=== PATIENT | male | born 1975 | race Caucasian/White ===

== ENCOUNTER 2022-10-27 06:57 | Emergency (ER) | payer BC, SELFPAY ==
[2022-10-27 06:57] VITALS: BP 109/90; PULSE 74; RESP 18; TEMP 36.4; O2SAT 100; BMI 21.2
--- NOTE | 2022-10-27 07:19 | CT_ITS ---
PROCEDURE INFORMATION: Exam: CT Abdomen And Pelvis With Contrast Exam date and time: 10/27/2022 7:39 AM Age: 47 years old Clinical indication: Abdominal pain; Acute; Additional info: Lower abd pain TECHNIQUE: Imaging protocol: Computed tomography of the abdomen and pelvis with contrast. Radiation optimization: All CT scans at this facility use at least one of these dose optimization techniques: automated exposure control; mA and/or kV adjustment per patient size (includes targeted exams where dose is matched to clinical indication); or iterative reconstruction. Contrast material: ISOVUE; Contrast volume: 100 ml; Contrast route: IV; REPORTING DATA: Count of CT and Cardiac NM exams in prior 12 months: This patient has received 0 known CTs and 0 known cardiac nuclear medicine studies in the 12 months prior to the current study. COMPARISON: CR XR LUMBAR SPINE 2-3V 07/12/2019 4:18 PM FINDINGS: Liver: Normal. No mass. Gallbladder and bile ducts: Normal. No calcified stones. No ductal dilation. Pancreas: Normal. No ductal dilation. Spleen: Normal. No splenomegaly. Adrenal glands: Normal. No mass. Kidneys and ureters: Normal. No hydronephrosis. Stomach and bowel: Bowel wall thickening in the rectosigmoid may represent colitis in the appropriate clinical setting. Appendix: Normal appendix Intraperitoneal space: Minimal free fluid in the pelvis Vasculature: Unremarkable. No abdominal aortic aneurysm. Lymph nodes: Unremarkable. No enlarged lymph nodes. Urinary bladder: The bladder wall measures 7 mm. Mild surrounding inflammatory changes This is nonspecific and may represent inflammation or infection. Neoplastic process and neurogenic bladder are included in the differential. Reproductive: Unremarkable as visualized. Bones/joints: Unremarkable. No acute fracture. Soft tissues: Left inguinal hernia contains fat IMPRESSION: 1. Bowel wall thickening in the rectosigmoid may represent colitis in the appropriate clinical setting. 2. The bladder wall measures 7 mm. Mild surrounding inflammatory changes This is nonspecific and may represent inflammation or infection. Neoplastic process and neurogenic bladder are included in the differential.
--- NOTE | 2022-10-27 07:20 | PC.NURSE ---
DR SANCHEZ AT BEDSIDE
[2022-10-27 07:27] LABS: Basophils % 0.5 % (0.1-2.0); Eosinophils # 0.1 K/mm3 (0.0-0.4); Eosinophils % 1.7 % (0.1-12.0); Hematocrit 49.9 % (42.0-52.0); Hemoglobin 16.6 g/dL (14.1-18.0); Lymphocytes % 39.8 % (10-50); Mean Corpuscular HGB Conc 33.3 g/dL (31.8-35.4); Mean Corpuscular Hemoglobin 30.3 pg (27.0-31.2); Mean Corpuscular Volume 91.1 fl (80-94); Mean Platelet Volume 7.5 fl (7.4-10.4); Monocytes # 0.4 K/mm3 (0.1-1.0); Monocytes % 8.3 % (1.7-9.3); Neutrophils # 2.5 K/mm3 (1.8-7.8); Neutrophils % 49.8 % (37.0-80.0); Platelet Count 239 K/mm3 (142-424); Red Blood Count 5.48 M/mm3 (4.60-6.20); Red Cell Distribution Width 13.3 % (11.5-17.5)
[2022-10-27 07:31] LABS: Alanine Aminotransferase 36 U/L (12-78); Albumin Level 4.8 g/dl (3.5-5.0); Albumin/Globulin Ratio 1.6 (1.1-1.8); Alkaline Phosphatase 31 U/L (38-126); Anion Gap 15.1 mEq/L (5-15); Aspartate Amino Transferase 37 U/L (17-59); Bilirubin,Total 1.6 mg/dl (0.2-1.3); Blood Urea Nitrogen 21 mg/dl (9-20); Calcium 9.6 mg/dl (8.4-10.2); Carbon Dioxide 33 mmol/L (22.0-30.0); Chloride 97 mmol/L (98-107); Creatinine Clearance Estimated 81 mL/min (50-200); Estimated Glomerular Filt Rate 80 ml/min (>60); GFR (African American) 97 ML/MIN (>60); Glucose 103 mg/dl (74-100); Lipase 100 U/L (23-300); Potassium 5.1 mmoL/L (3.5-5.1); Sodium 140 mmol/L (136-145); Total Protein,Serum 7.8 g/dl (6.3-8.2)
--- NOTE | 2022-10-27 07:36 | PC.NURSE ---
pt to CT
--- NOTE | 2022-10-27 07:40 | PC.NURSE ---
ROUNDED ON PT, REPORTS SOME RELIEF FROM TORADOL. NO FURTHER NEEDS AT THIS TIME. AT BEDSIDE.
--- NOTE | 2022-10-27 07:42 | PC.NURSE ---
pt return from ct
--- NOTE | 2022-10-27 07:44 | PC.NURSE ---
pt reports pain has improved, states no needs at this time, warm blanket offered-pt declined. at BS, Call blanco in reach
[2022-10-27 07:46] VITALS: BP 127/72; PULSE 53; RESP 18; O2SAT 99
[2022-10-27 08:00] VITALS: BP 112/72; PULSE 54; RESP 18; O2SAT 100
--- NOTE | 2022-10-27 08:09 | PC.NURSE ---
DR ENGLAND AT BEDSIDE
--- NOTE | 2022-10-27 08:23 | PC.NURSE ---
PT ASSISTED TO BR, UA COLLECTED AT THIS TIME. PT RETURNED TO BED, NO NEEDS VOICED. AT BEDSIDE
[2022-10-27 08:27] LABS: Appearance,Urine CLEAR (Clear); Bilirubin,Urine Negative (Negative); Blood, Urine Negative (Negative); Color,Urine YELLOW (Yellow); Glucose,Urine (UA) Negative (Negative); Ketones,Urine Negative (Negative); Leukocyte Esterase,Urine Negative (Negative); Microscopic, Urine URINE MICROSCOPIC (MICROSCOPIC); Nitrate,Urine Negative (Negative); PH,Urine 6.5 (5.0-8.5); Protein,Urine Negative (Negative); Urobilinogen,Urine 0.2 EU/dl (0.2)
[2022-10-27 08:37] LABS: Bacteria,Urine Trace /lpf; Squamous Epithelial Cell,Urine Occasional #/hpf (0-5)
--- NOTE | 2022-10-27 08:40 | PC.NURSE ---
PT REQUESTS PAIN MEDICATION, DR ENGLAND NOTIFIED
--- NOTE | 2022-10-27 08:42 | PC.NURSE ---
contacted rad to check on status of ct results, rad staff reports pt scan is assigned but no results back yet.
--- NOTE | 2022-10-27 09:05 | PC.NURSE ---
pt sitting on side of bed no needs at this time
[2022-10-27 09:06] VITALS: BP 116/81; PULSE 52; RESP 18; O2SAT 98
--- NOTE | 2022-10-27 09:31 | HMH.EDGENADL ---
Discharge Plan Disposition Patient Disposition: Home, Self-Care Condition: Good Prescriptions Prescriptions: New ciprofloxacin HCl [Cipro] 500 mg tablet 500 mg PO BID Qty: 20 0RF hydrocodone-acetaminophen 5-325 mg tablet 1 tab PO TID PRN (Reason: pain) Qty: 9 0RF Referrals Follow up/Referrals: Provider,Referral, [Primary Care Provider] - See instructions Activity Restrictions/Add. Instructions Additional Instructions/Restrictions: Medications as directed. Obtain PCP and discuss follow-up colonoscopy. Clinical Impressions Clinical Impression: Colitis cystica profunda, Bacteriuria Instructions Patient Instructions: DI for Acute Abdominal Pain Discharge ED Provider: Fercho (ED)[facility] Adult HPI General Chief complaint: Abdominal Pain Stated complaint: Left side abd pain Time Seen by Provider: 10/27/22 08:06 Mode of Arrival: Ambulatory Source of Information: Patient Limitations: No Limitations Description of Symptoms (Recalled from ER Triage Doc. by RN): PT WOKE WITH LEFT LOWER QUAD PAIN ABOUT 0300 THIS AM, WITH RIGHT SIDED BACK PAIN. PT DENIES N/V, DENIES FEVER OR CHILLS. NO CHANGE IN BOWEL HABITS. History of Present Illness HPI narrative: 47yo M presents to the ER with left lower quadrant abdominal pain. Pain woke him from sleep this morning. Denies previous episode. No fever. No abdominal surgery. No nausea or vomiting. Normal bowel habits. Reports no change in his diet. Related Data Previous Rx's Medication Instructions Recorded ciprofloxacin HCl 500 mg tablet 500 mg PO BID #20 tabs 10/27/22 (Cipro) hydrocodone 5 mg-acetaminophen 325 1 tab PO TID PRN pain #9 tabs 10/27/22 mg tablet Allergies Allergy/AdvReac Type Severity Reaction Status Date / Time No Known Allergies Allergy Verified 07/28/17 10:21 [facility] Disclaimer: The information contained in this section may have been updated after the patient was seen, as this information can be updated by other users. Medical History No significant past medical history Family History Other No significant family history Social History Smoking Status: Never smoker alcohol intake: never current occupational status: other Travel in the last 8 weeks: None ROS Obtained: Yes Systems reviewed as appropriate & no additional complaints except as documented Physical Exam General General appearance: alert and in no apparent distress Head Head exam: atraumatic Eye Eye exam: Present normal appearance Neck Neck exam: Present normal inspection Chest Chest inspection: Present symmetric chest wall rise Respiratory Respiratory exam: Present normal lung sounds bilaterally; Absent respiratory distress Cardiovascular Cardiovascular exam: Present regular rate, normal rhythm and normal heart sounds Abdominal Exam Abdominal exam: Present soft, tenderness (Right upper quadrant tenderness, left lower quadrant tenderness) and normal bowel sounds; Absent distention or rigidity Extremities Exam Extremities exam: Present normal inspection; Absent tenderness Neurological Exam Neurological exam: Present alert, oriented X3 and CN II-XII intact Psychiatric Psychiatric exam: Present normal affect Skin Skin exam: Present warm and dry Medical Decision Making Medical Records Medical records reviewed: Yes I reviewed the patient's medical records. Martir Inquiry Pt receiving controlled substance: Yes Martir was queried for this patient: Yes Risks and benefits of using a controlled substance: were discussed with pt by me Vital Signs: 10/27/22 06:57 10/27/22 07:46 10/27/22 08:00 Temperature 97.6 F Temperature Source Oral Pulse Rate 53 L 54 L Pulse Rate [Radial] 74 Respiratory Rate 18 18 18 Blood Pressure 127/72 112/72 Blood Pressure [Left Arm] 109/90 L B
--- NOTE | 2022-10-27 09:39 | PC.NURSE ---
PT STATES NO RELIEF FROM MORPHINE, DR ENGLAND NOTIFIED. AT BEDSIDE TO SPEAK WITH PT AND
[2022-10-27 09:58] VITALS: BP 118/79; PULSE 60; RESP 17; TEMP 36.6; O2SAT 98
== END 2022-10-27 10:00 | disposition home or self-care (01) ==
PROVIDERS: Emergency Provider Emergency Medicine
DX: K52.89 Other specified noninfective gastroenteritis and colitis (principal); R82.71 Bacteriuria; R10.32 Left lower quadrant pain
CPT/HCPCS: 74177; 80053; 81001; 83690; 85025; 96361; 96374; 96375; 99285; J2405; Q9967

== ENCOUNTER → 2023-04-01 13:49 | Outpatient (CLI) | payer BC, SELFPAY ==
--- NOTE | 2023-04-01 13:53 | XR_ITS ---
FINAL REPORT CLINICAL HISTORY: cervical pain, pain radiates down both arms FINDINGS: SPINE CERVICAL COMPLETE/FLEXION & EXT AP, lateral, oblique with flexion and extension views were obtained. There is no acute fracture. Alignment is within normal limits. There are mild degenerative changes. There are osteophytes in the lower cervical spine. There is no significant neural foraminal narrowing. There is no abnormal movement with flexion or extension. IMPRESSION: Mild degenerative change. Reviewed, Interpreted and Dictated by Kd Sheikh III, MD Transcribed by Doron Whaley Authenticated and [facility]
== END ==
LOC: RAD 13:50
PROVIDERS: PCP Nurse Practitioner Family; Visit Provider Nurse Practitioner Family
DX: M54.12 Radiculopathy, cervical region (principal); M54.2 Cervicalgia; M54.9 Dorsalgia, unspecified
CPT/HCPCS: 72052

== ENCOUNTER → 2023-04-16 16:06 | Outpatient (CLI) | payer BC, SELFPAY ==
[2023-04-16 16:52] LABS: Prothrombin Time 10.8 seconds (10.1-12.5)
[2023-04-16 16:53] LABS: Basophils % 0.3 % (0.1-2.0); Eosinophils # 0.1 K/mm3 (0.0-0.4); Eosinophils % 1.1 % (0.1-12.0); Hematocrit 47.3 % (42.0-52.0); Hemoglobin 16.7 g/dL (14.1-18.0); Lymphocytes # 1.8 K/mm3 (0.7-4.5); Lymphocytes % 30.7 % (10-50); Mean Corpuscular HGB Conc 35.3 g/dL (31.8-35.4); Mean Corpuscular Volume 90.6 fl (80-94); Mean Platelet Volume 7.5 fl (7.4-10.4); Monocytes # 0.3 K/mm3 (0.1-1.0); Neutrophils # 3.5 K/mm3 (1.8-7.8); Neutrophils % 61.9 % (37.0-80.0); Platelet Count 217 K/mm3 (142-424); Red Blood Count 5.22 M/mm3 (4.60-6.20); Red Cell Distribution Width 13.2 % (11.5-17.5); White Blood Count 5.7 K/mm3 (4.8-10.8)
[2023-04-16 17:09] LABS: Alanine Aminotransferase 97 U/L (12-78); Albumin Level 4.8 g/dl (3.5-5.0); Alkaline Phosphatase 39 U/L (38-126); Anion Gap 12.8 mEq/L (5-15); Aspartate Amino Transferase 65 U/L (17-59); Bilirubin,Indirect 1.1 mg/dL (0.0-0.9); Bilirubin,Total 1.1 mg/dl (0.2-1.3); Bilirubin,Unconjugated 1.1 mg/dL (0.0-1.1); Blood Urea Nitrogen 20 mg/dl (9-20); Calcium 9.8 mg/dl (8.4-10.2); Carbon Dioxide 31 mmol/L (22.0-30.0); Chloride 98 mmol/L (98-107); Chol/HDL Ratio 3.1 (1-3.5); Cholesterol 295 mg/dl (140-200); Estimated Glomerular Filt Rate 90 ml/min (>60); GFR (African American) 109 ML/MIN (>60); Glucose 95 mg/dl (74-100); HDL Cholesterol 95 mg/dl (40-60); Potassium 3.8 mmoL/L (3.5-5.1); Sodium 138 mmol/L (136-145); Total Protein,Serum 7.8 g/dl (6.3-8.2); Triglycerides 108 mg/dl (30-150); VLDL Cholesterol 22 mg/dL (0-40)
[2023-04-16 17:20] LABS: Direct LDL Cholesterol 156.62 mg/dL (100-129)
[2023-04-16 17:26] LABS: Free Thyroxine Index 2.1 ug/dL (5.93-13.13); T4 (Thyroxine) 6.8 ug/dl (5.53-11.0); Triiodothryronine (T3) Uptake 31 % (23.5-40.5)
[2023-04-16 17:39] LABS: Thyroid Stimulating Hormone 2.36 uIU/mL (0.465-4.68)
[2023-04-16 18:01] LABS: Hemoglobin A1C 5.1 % (4.0-6.0)
== END ==
PROVIDERS: PCP Nurse Practitioner Family; Visit Provider Internal Medicine
DX: R00.0 Tachycardia, unspecified (principal); R94.31 Abnormal electrocardiogram [ECG] [EKG]
CPT/HCPCS: 36415; 80048; 80061; 80076; 83036; 84436; 84443; 84479; 85025; 85610

== ENCOUNTER → 2023-04-29 10:09 | Outpatient (CLI) | payer BC, SELFPAY ==
--- NOTE | 2023-04-29 10:10 | CA_ITS ---
APPROVED REPORT EXAM: Comprehensive 2D, Doppler, and color-flow Echocardiogram Bean Picker: Janis Lancaster RVT Ht: 5 ft 8 in Wt: 146lbs BSA: 1.79 BP: 136/93 mmHg Indications: ABN EKG,HTN 2D Dimensions LVOT 2.02 cm (M/F) 1.5-2.5 LA Volume 26.20 mL LA Volume Index 14.64 mL/m2 (M/F) 16-34 M-Mode Dimensions RVDd 2.48 cm (0.9-2.6) LA Diam 2.66 cm (1.9-4.0) LVDd 5.03 cm (3.5-5.7) Ao Diam 3.46 cm (2.0-3.7) LVDs 3.22 cm (3.5-5.7) IVSd 0.97 cm (0.6-1.1) PWd 0.54 cm (0.6-1.1) EF (Teich) 65.30% FS 36.00% EDV (Teich) 119.90 mL TAPSE 2.99 (<1.7) ESV (Teich) 41.60 mL LV Diastology E Decel Time 150.00 (160-240 msec) E/A Ratio 0.9 MED E' 4.40 (< 7 cm/sec) E'/MED E' Ratio 11.95 (>14) LAT E' 7.60 (<10 cm/sec) E/LAT E' Ratio 6.92 (>14) Aortic Valve LVOT Max 89.00 (70-110 cm/s) LVOT VTI 16.16 cm AoV Peak Godfrey. 107.00 (50-130 cm/s) AO Peak GR. 4.60 mmHg AO Mean GR. 2.30 (<5 mmHg) AO VTI 21.25 (18-25 cm) JELLY (VTI) 2.44 (2.5-4.5 cm2) Mitral Valve MV E Max Godfrey. 53.00 (40-130 cm/s) MV A Velocity 62.00 (40-130 cm/s) E/A Ratio 0.85 MV Decel. Time 150.00 (160-240 ms) MV PHT 44.00 ms Pulmonary Valve PV Peak Velocity 57.00 (50-150 cm/s) Tricuspid Valve TR P. Velocity 264.00 cm/s RAP Estimate 10.00 mmHg RVSP 37.80 mmHg Left Ventricle The left ventricle is normal size. The left ventricular systolic function is normal. The left ventricular ejection fraction is within the normal range. There is normal left ventricular wall thickness. There is normal LV segmental wall motion. The left ventricular diastolic function is normal. LVEF is 60%. Right Ventricle The right ventricle is normal size. The right ventricular systolic function is normal. Atria The left atrium size is normal. The right atrium size is normal. There is no Doppler evidence of interatrial shunt. Aortic Valve The aortic valve opens well. The aortic valve is trileaflet. There is no aortic valvular stenosis. No aortic regurgitation is present. Mitral Valve The mitral valve is normal in structure. No evidence of mitral valve stenosis. Mild mitral regurgitation. Tricuspid Valve The tricuspid valve leaflets are thin and pliable. Trace tricuspid regurgitation. RVSP is normal. Pulmonic Valve The pulmonary valve is normal in structure. Mild pulmonic regurgitation. Great Vessels The aortic root is normal in size. The ascending aorta is normal in size. IVC is normal in size and collapses >50% with inspiration. Pericardium There is no pericardial effusion. Other Information Study Quality: Adequate Conclusion Normal biventricular systolic function. Mild MR. Electronically signed by : Melvina Gregg MD 04/30/2023 10:21:30
== END ==
LOC: RT 10:10
PROVIDERS: PCP Nurse Practitioner Family; Visit Provider Internal Medicine
DX: R00.0 Tachycardia, unspecified (principal); R94.31 Abnormal electrocardiogram [ECG] [EKG]
CPT/HCPCS: 93306

== ENCOUNTER → 2023-05-16 07:21 | Outpatient (CLI) | payer SELFPAY ==
--- NOTE | 2023-05-16 07:23 | CT_ITS ---
APPROVED REPORT Digital Media Associate: CLINICAL INDICATION Risk stratification, preventative care TECHNIQUE Image Acquisition: A 128 slice MDCT scanner ([place] View) was used for data acquisition. A noncontrast coronary calcium scan was performed. A CT attenuation threshold of 130 Hounsfield units (HU) was used for the detection of calcium in contiguous voxels of 1 sq mm in area to be counted as individual lesions. A tube voltage of 120 KVp was used. The patient received no medications prior to the coronary calcium CT. Image Reconstruction Transaxial images were reconstructed at 0.67 mm slide thickness. Data was reviewed interactively on an advanced workstation capable of 2 and 3-dimensional displays in all conventional reconstruction formats, including multiplanar reformations, maximum intensity projections, curved multiplanar reformations, and volume rendered reconstructions. When applicable, selected routine images describing the relevant coronary anatomy and pathology were saved and sent to PACS. Complications None Technical Quality Overall image quality was good. Total DLP (Dose-Length Product) is 161.9 mGy-cm. The reported value represents the total of one or more individual components during the CT acquisition of this date and at this time, and as such, the same value may appear in more than one CT report depending on the interpreting/reporting physicians. COMPARISON None FINDINGS CT Coronary Calcium Scoring LMA (Left Main Artery) = 0 LAD (Left Anterior Descending) = 0 LCX (Left Coronary Circumflex) = 0 RCA (Right Coronary Artery) = 0 Total Calcium Score = 0 using the AJ-130 method. There is no identifiable calcification in the aortic valve, mitral annulus or mitral valve, pericardium, or myocardium. IMPRESSION -Coronary artery calcification is absent. -Total Calcium Score (Agatston Score) = 0 using the AJ-130 method. The interpretation of the calcium heart score is based on the following continuum*: 0 = no calcified plaque detected (risk of coronary artery disease is very low ??? less than 5%) 1-10 = calcium detected in extremely minimal levels (risk of coronary diseases is still low ??? less than 10%) 11-100 = mild levels of plaque detected with certainty (mild or minimal narrowing of heart arteries is likely) 101-400 = definite,at least moderate levels of plaque detected (relatively high risk of a heart attack within 3-5 years) >401-999 = extensive levels of plaque detected (high risk of heart attack, high levels of vascular disease are present, high likelihood of at least one significant coronary narrowing) *The calcium heart score quantifies the burden of coronary calcification/plaque in the coronary arteries. The calcium heart score does not evaluate the presence or the burden of non-calcified (i.e. soft) plaque. The coronary and cardiac findings of this Coronary Calcium CT were reviewed, reported, and signed by Jeff Gregg MD (Tapping Machine Operator). Conclusion Electronically signed by : Melvina Gregg MD 05/19/2023 10:41:12
== END ==
PROVIDERS: PCP Nurse Practitioner Family; Visit Provider Internal Medicine
DX: R94.31 Abnormal electrocardiogram [ECG] [EKG] (principal); E78.00 Pure hypercholesterolemia, unspecified
CPT/HCPCS: 75571

== ENCOUNTER 2024-07-15 13:23 | Outpatient (CLI) | payer BC, SELFPAY ==
[2024-07-15 18:01] LABS: Coronavirus 19, PCR Not Detected (NotDetected); Influenza B, PCR Not Detected (NotDetected)
[2024-07-15 23:53] LABS: Influenza A, PCR Detected (NotDetected)
== END 2024-07-15 23:59 | disposition home or self-care (01) ==
LOC: LAB.DROPOF 07-16 12:20
PROVIDERS: PCP Student in an Organized Health Care Education/Training Program; Visit Provider Student in an Organized Health Care Education/Training Program
DX: R50.9 Fever, unspecified (principal)
CPT/HCPCS: 87636